=== PATIENT | female | born 1980 | race Asian ===

== ENCOUNTER 2019-12-03 13:49 | Emergency (ER) | payer OTHER ==
[~2019-12-03] VITALS: Ht 162.6 cm; Wt 63.5 kg
[2019-12-03 14:00] VITALS: BP 128/75
[2019-12-03] MEDS ORDERED: DiphenhydrAMINE 50mg/ml Inj IVP ONE (14:15)
[2019-12-03] MEDS ORDERED: Metoclopramide 10mg/2ml Inj IVP ONE (14:15)
--- NOTE | 2019-12-03 14:18 | Emergency Room Report ---
History of Present Illness General Chief Complaint: Abdominal Pain Source: Patient Present Illness HPI Patient presents with lower abdominal pain and vaginal bleeding that is abnormal. She started her menstruation on the 18. She just had spotting. Yesterday she had increased and pelvic and suprapubic pain that was 10/10 and constant. She took Tylenol for now with the pain is 7/10. Feels like cramps to her and aching, not radiating. There is no dysuria. She does not believe she is however she has had unprotected sex. She had an upper respiratory illness predating this and was seen at urgent care. She was given methylprednisolone and finished a course. This was started about the 16. She denies cough or sore throat at this time. She is also felt nauseated without any vomiting. She still feels nauseated at this time. No unusual foods or contacts. She last took Tylenol 2 hours ago. No fevers or chills. No change in her bowels. No chest pain, palpitations, shortness of breath, joint pain, rashes, depression , anxiety, visual changes, dizziness, headache. She has 2 children. Ages 12 and 5. COVID-19 risk:Contact w/high r: No COVID-19 risk:Travel to affect: No Has patient experienced worrell: No Allergies: Coded Allergies: No Known Allergies (Unverified , 12/03/19) Patient History Past Medical History: see triage record Social History Narrative with 2 children Last Menstrual Period: 11/30/19 Reviewed Nursing Documentation: PMH: Agreed; PSxH: Agreed Nursing Documentation-PMH Past Medical History: No Stated History Review of Systems All Other Systems: negative except mentioned in HPI Physical Exam Vital Signs Date Time Temp Pulse Resp B/P (MAP) Pulse Ox O2 Delivery O2 Flow Rate FiO2 12/03/19 13:55 98.1 91 18 136/83 (100) 98 Room Air Sp02 EP Interpretation: reviewed, normal General Appearance: well appearing, no apparent distress, GCS 15, non-toxic Head: normocephalic Eyes: bilateral eye normal inspection, bilateral eye PERRL, bilateral eye EOMI ENT: normal pharynx, moist mucus membranes Neck: supple Respiratory: lungs clear, normal breath sounds Cardiovascular #1: regular rate, rhythm Cardiovascular #2: 2+ radial (R) Gastrointestinal: normal inspection, normal bowel sounds, no mass, non- distended, no guarding, no rebound, tenderness Genitourinary: no CVA tenderness, deferred - For ultrasound Musculoskeletal: back normal, normal range of motion, gait/station normal Neurologic: alert, oriented x3, grossly normal Psychiatric: mood/affect normal Skin: no rash Medical Decision Making Diagnostic Impression: Primary Impression: Pelvic pain Additional Impressions: Dysfunctional uterine bleeding Leukocytosis Qualified Codes: D72.828 - Other elevated white blood cell count ER Course Patient presents with abnormal vaginal bleeding, pelvic pain and nausea. Differential includes ectopic , ovarian torsion, fibroids and dysfunctional bleeding, menorrhagia, UTI amongst others. Evaluation with labs and ultrasound. IV hydration, Reglan and Benadryl ordered. Labs with leukocytosis. negative. Ultrasound with heterogeneous material in the uterus. See report below. Patient reports pain is decreased to 3/10. Due to the leukocytosis I recommended CT of the abdomen and pelvis. She declines at this time and realizes that she could have appendicitis or other surgical problem that does not diagnosed at this time. We agreed for outpatient observation and that if the pain or her condition worsens that she return immediately. Patient improved and stable for outpatient observation and treatment. Laboratory Tests Test 12/03/19 14:30 White Blood Count 14.4 K/UL (4.8-10.8) H Red Blood Count 4.74 M/UL (4.20-5.40) Hemoglobin 12.4 G/DL (12.0-16.0) Hematocrit 37.4 % (37.0-47.0) Mean Corpuscular Volume 79 FL (80-99) L Mean Corpuscular Hemoglobin 26.1 PG (27.0-31.0) L Mean Corpuscular Hemoglobin Concent 33.1 G/DL (32.0-36.0) Red Cell Distribution Width 13.0 % (11.6-14.8) Platelet Count 454 K/UL (150-450) H Mean Platelet Volume 5.9 FL (6.5-10.1) L Neutrophils (%) (Auto) 59.5 % (45.0-75.0) Lymphocytes (%) (Auto) 30.9 % (20.0-45.0) Monocytes (%) (Auto) 7.9 % (1.0-10.0) Eosinophils (%) (Auto) 0.7 % (0.0-3.0) Basophils (%) (Auto) 1.0 % (0.0-2.0) Prothrombin Time 9.7 SEC (9.30-11.50) Prothrombin Time INR 0.9 (0.9-1.1) Activated Partial Thromboplast Time 26 SEC (23-33) Urine Color Yellow Urine Appearance Slightly cloudy Urine pH 7 (4.5-8.0) Urine Specific Archie 1.010 (1.005-1.035) Urine Protein 1+ (NEGATIVE) H Urine Glucose (UA) Negative (NEGATIVE) Urine Ketones Negative (NEGATIVE) Urine Blood 5+ (NEGATIVE) H Urine Nitrite Negative (NEGATIVE) Urine Bilirubin Negative (NEGATIVE) Urine Urobilinogen Normal MG/DL (0.0-1.0) Urine Leukocyte Esterase Trace (NEGATIVE) H Urine RBC Tntc /HPF (0 - 2) H Urine WBC 2-4 /HPF (0 - 2) Urine Squamous Epithelial Cells Few /LPF (NONE/OCC) Urine Bacteria Few /HPF (NONE) Urine HCG, Qualitative Negative (NEGATIVE) Sodium Level 140 MMOL/L (136-145) Potassium Level 3.8 MMOL/L (3.5-5.1) Chloride Level 101 MMOL/L (98-107) Carbon Dioxide Level 27 MMOL/L (21-32) Anion Gap 13 mmol/L (5-15) Blood Urea Nitrogen 13 mg/dL (7-18) Creatinine 0.8 MG/DL (0.55-1.30) Estimated Glomerular Filtration Rate > 60 mL/min (>60) Glucose Level 97 MG/DL (74-106) Calcium Level 9.3 MG/DL (8.5-10.1) Total Bilirubin 0.3 MG/DL (0.2-1.0) Aspartate Amino Transferase (AST) 11 U/L (15-37) L Alanine Aminotransferase (ALT) 19 U/L (12-78) Alkaline Phosphatase 67 U/L (46-116) Total Protein 8.0 G/DL (6.4-8.2) Albumin 3.5 G/DL (3.4-5.0) Globulin 4.5 g/dL Albumin/Globulin Ratio 0.8 (1.0-2.7) L Lipase 213 U/L (73-393) CT/MRI/US Diagnostic Results CT/MRI/US Diagnostic Results : Imaging Test Ordered: Pelvic ultrasound Impression Nonspecific heterogeneity of uterine echotexture. No mass or endometrial thickening. Unremarkable adnexal contents. Last Vital Signs Date Time Temp Pulse Resp B/P (MAP) Pulse Ox O2 Delivery O2 Flow Rate FiO2 12/03/19 16:15 98.0 75 20 132/75 99 Room Air Status: improved Disposition: HOME, SELF-CARE Condition: Improved Scripts Ondansetron Odt* (ZOFRAN ODT*) 4 Mg Tab.rapdis 4 MG BC EVERY 8 HOURS PRN for Nausea & Vomiting, #6 TAB 0 Refills Prov: Kristian Lyles MD 12/03/19 Kristian Lyles MD Dec 03, 2019 14:18
[2019-12-03 14:46] LABS: APPEARANCE,URINE SLIGHTLY CLOUDY; BILIRUBIN, URINE NEGATIVE (NEGATIVE); EOSINOPHILS % (AUTO) 0.7 % (0.0-3.0); GLUCOSE, URINE (UA) NEGATIVE (NEGATIVE); HEMATOCRIT 37.4 % (37.0-47.0); HEMOGLOBIN 12.4 G/DL (12.0-16.0); KETONES,URINE NEGATIVE (NEGATIVE); LYMPHOCYTES % (AUTO) 30.9 % (20.0-45.0); MEAN CORPUSCULAR VOLUME 79 FL (80-99); MONOCYTES % (AUTO) 7.9 % (1.0-10.0); NEUTROPHILS % (AUTO) 59.5 % (45.0-75.0); NITRITE,URINE NEGATIVE (NEGATIVE); PH,URINE 7 (4.5-8.0); PLATELET COUNT 454 K/UL (150-450); PROTEIN,URINE 1+ (NEGATIVE); RED BLOOD COUNT 4.74 M/UL (4.20-5.40); UROBILINOGEN,URINE NORMAL MG/DL (0.0-1.0); WHITE BLOOD COUNT 14.4 K/UL (4.8-10.8)
[2019-12-03 14:54] LABS: INR 0.9 (0.9-1.1)
[2019-12-03 14:55] LABS: ANION GAP 13 mmol/L (5-15); BLOOD UREA NITROGEN 13 mg/dL (7-18); CALCIUM 9.3 MG/DL (8.5-10.1); CARBON DIOXIDE 27 MMOL/L (21-32); CHLORIDE 101 MMOL/L (98-107); CREATININE 0.8 MG/DL (0.55-1.30); POTASSIUM 3.8 MMOL/L (3.5-5.1); SODIUM 140 MMOL/L (136-145)
[2019-12-03 14:57] LABS: ALANINE AMINOTRANSFERASE 19 U/L (12-78); ALBUMIN 3.5 G/DL (3.4-5.0); ALBUMIN/GLOBULIN RATIO 0.8 (1.0-2.7); ALKALINE PHOSPHATASE 67 U/L (46-116); ASPARTATE AMINO TRANSFERASE 11 U/L (15-37); BILIRUBIN,TOTAL 0.3 MG/DL (0.2-1.0)
[2019-12-03 14:58] LABS: COLOR,URINE YELLOW
[2019-12-03 14:59] LABS: LEUKOCYTE ESTERASE ,URINE TRACE (NEGATIVE)
--- NOTE | 2019-12-03 15:44 | Diagnostic Imaging Report ---
EXAM: US Pelvis Transabdominal, Complete CLINICAL HISTORY: PAIN TECHNIQUE: Real-time complete transabdominal pelvic ultrasound with image documentation. COMPARISON: No relevant prior studies available. FINDINGS: Uterus/cervix: Normal in size, 7.9 x 6 x 4.2 cm. Normal endometrial stripe thickness at 5 mm. Generally heterogeneous echotexture. No myometrial mass. Right ovary: Normal in size, 2.7 x 1.6 x 1.9 cm. No mass. Normal blood flow. Left ovary: Normal in size, 2.1 x 1.2 x 2 cm. No mass. Normal blood flow. Free fluid: No free fluid. IMPRESSION: Nonspecific heterogeneity of uterine echotexture. No mass or endometrial thickening. Unremarkable adnexal contents.
[2019-12-03] MEDS ORDERED: ONDANSETRON ODT4 MG BC (15:57)
[2019-12-03 16:15] VITALS: BP 132/75
--- NOTE | 2019-12-05 12:23 | Diagnostic Imaging Report ---
Indication:Lower abdominal and pelvic pain Technique: Grayscale and duplex Doppler imaging of the pelvis performed utilizing a transabdominal and endovaginal scan. Comparison: None Findings: The size, contour, and configuration of the uterus is within normal limits. The uterine myometrium may be slightly heterogeneous. The endometrium is uniformly echogenic and normal in thickness. Endometrium is 5 mm in thickness. There are cervical nabothian cysts. Uterus measures 7.9 x 6 x 4.6 cm. The ovaries appear normal bilaterally with good dopplerable blood flow. There is no significant free fluid identified. Right ovary 1.9 x 1.6 x 2.7 cm. Left ovary 2.1 x 1.2 x 2 cm. IMPRESSION: Negative pelvic ultrasound. No acute findings.
== END 2019-12-03 16:15 | disposition home or self-care (01) ==
LOC: EMR 14:33
DX: R10.2 Pelvic and perineal pain (principal); N93.9 Abnormal uterine and vaginal bleeding, unspecified; D72.828 Other elevated white blood cell count
CPT/HCPCS: 36415; 76830; 76856; 80053; 81003; 81025; 83690; 85025; 85610; 85730; 96361; 96374; 96375; J1200; J2765; J7030; Z7502; 99284